=== PATIENT | male | born 1985 | race Caucasian/White ===

== ENCOUNTER 2023-07-12 13:03 | Outpatient (CLI) | payer BC, SELFPAY | END 2023-07-12 13:04 | disposition home or self-care (01) | LOC: KYNREF 13:05 | PROVIDERS: PCP Nurse Practitioner Family; Visit Provider Nurse Practitioner Family | DX: I10 Essential (primary) hypertension (principal); Z51.81 Encounter for therapeutic drug level monitoring | CPT/HCPCS: 80076 ==

== ENCOUNTER 2023-07-30 12:56 | Outpatient (CLI) | payer BC, SELFPAY ==
--- OUTSIDE RECORDS SUMMARY | 2023-07-31 19:11 | XMS_ITS | Clinical Summary ---
Author Name Unknown Organization [facility] Address [place], [place] [address] Care Team Providers Care Foot Drill Operator Name Role Phone Shai Pleitez MD Primary Care Provider + Allergies Active Allergy Reactions Criticality Noted Date Comments Tetanus And Diphther. Tox (Pf) Rash 10/13 With whooping cough Medications No known medications Active Problems Problem Noted Date Diagnosed Date Major depression, single episode 02/13/2011 Resolved Problems Problem Noted Date Diagnosed Date Resolved Date Alcohol abuse 02/13/2011 12/14/2017 Immunizations Name Administration Dates Next Due MMR 10/26/1995 Td (Age >=7 Years) 10/26/1995 Family History Medical History Relation Name Comments Hypertension No Family History Relation Name Status Comments Father Alive Social History Tobacco Use Types Packs/Day Years Used Date Smoking Tobacco: Every Day Cigarettes 1 5 Smokeless Tobacco: Never Tobacco Cessation:Ready to Q uit: Not Asked; Counseling Given: Not Answered Alcohol Use Standard Drinks/Week Comments Yes 0 (1 standard drink = 0.6 oz pur e alcohol) history of abuse PHQ-2 Answer Date Recorded PHQ-2 TOTAL SCORE 2 06/19/2022 Social Connections Answer Date Recorded Frequency of Communication with Friends and Fami ly Not on file 06/19/2022 Sex and Gender Information Value Date Recorded Sex Assigned at Not on file Gender Identity Not on file Sexual Orientation Not on file Obstetrics History Last Filed Vital Signs Vital Sign Reading Time Taken Comments Blood Pressure 140/90 06/19/2022 3:32 PM PRODUCER Pulse 97 06/19/2022 3:32 PM PRODUCER Temperature 36.8 ??C (98.2 ??F) 03/14/2011 3:04 PM CD T Respiratory Rate 12 03/14/2011 3:04 PM CDT Oxygen Saturation 96% 06/19/2022 3:32 PM PRODUCER Inhaled Oxygen Concentration - - Weight 104.3 kg (230 lb) 06/19/2022 3:32 PM PRODUCER Height 184.2 cm (6' 0.5) 06/19/2022 3:32 PM PRODUCER Body Mass Index 30.76 06/19/2022 3:32 PM PRODUCER Plan of Treatment Health Maintenance Due Date Last Done Comments COVID-19 vaccine series (#1) 1983 Pneumococcal series for age 6-64 (1 of 2 - PCV) 1989 Tdap 1994 Tetanus booster 10/25/2005 10/26/1995 Influenza for age 9-49 03/02/2023 BMI (ht and wt on same day) for age 18+ 06/19/2023 06/19/2022, 12/14/2017, 10/13/2016 Depression screening for age 12+ 06/22/2023 06/22/2022, 06/19/2022, 12/14/2017, Additional history exists Lipids for age 35-44 06/19/2027 06/19/2022 HIV for age 15-65 Completed 06/19/2022 Hepatitis C screening for ag e 18-79 Completed 06/19/2022 Care Teams Foot Drill Operator Relationship Specialty Start Date End Date Shai Pleitez MD PCP - General Family Practice 02/13/11
== END 2023-07-30 12:57 | disposition home or self-care (01) ==
LOC: NFLDREF 07-31 19:10
PROVIDERS: PCP Nurse Practitioner Family; Referring Provider Nurse Practitioner Family; Visit Provider Nurse Practitioner Family
DX: Z51.81 Encounter for therapeutic drug level monitoring (principal)
CPT/HCPCS: 80076

== ENCOUNTER 2023-08-23 13:03 | Outpatient (CLI) | payer BC, SELFPAY | END 2023-08-23 13:04 | disposition home or self-care (01) | LOC: NFLDREF 09-04 20:53 | PROVIDERS: PCP Nurse Practitioner Family; Referring Provider Nurse Practitioner Family; Visit Provider Nurse Practitioner Family | DX: Z51.81 Encounter for therapeutic drug level monitoring (principal) | CPT/HCPCS: 80076 ==

== ENCOUNTER 2023-12-04 13:21 | Outpatient (CLI) | payer BC, SELFPAY ==
--- OUTSIDE RECORDS SUMMARY | 2023-12-04 13:23 | XMS_ITS | Clinical Summary ---
Author Organization [facility] Address [place], [place] [address] Care Team Providers Care Cleaning Porter Name Role Phone Shai Pleitez MD Primary [...] Comments Blood Pressure 140/90 06/19/2022 3:32 PM AGRICULTURAL ADVISER Pulse 97 06/19/2022 3:32 PM AGRICULTURAL ADVISER Temperature 36.8 ??C (98.2 ??F) 03/14/2011 3:04 PM CD T Respiratory Rate 12 03/14/2011 3:04 PM CDT Oxygen Saturation 96% 06/19/2022 3:32 PM AGRICULTURAL ADVISER Inhaled Oxygen Concentration - - Weight 104.3 kg (230 lb) 06/19/2022 3:32 PM AGRICULTURAL ADVISER Height 184.2 cm (6' 0.5) 06/19/2022 3:32 PM AGRICULTURAL ADVISER Body Mass Index 30.76 06/19/2022 3:32 PM AGRICULTURAL ADVISER Plan of Treatment Health Maintenance Due Date Last Done Comments Pneumococcal series for age 6-64 (1 of 2 - PCV) 1989 Tdap 1994 Tetanus booster 10/25/2005 10/26/1995 COVID-19 vaccine series ( - season) 2023 BMI (ht and wt on same day) for age 18+ 06/19/2023 06/19/2022, 12/14/2017, 10/13/2016 Depression screening for age 12+ 06/22/2023 06/22/2022, 06/19/2022, 12/14/2017, Additional history exists Influenza for age 9-49 03/02/2024 Lipids for age 35-44 06/19/2027 06/19/2022 HIV for age 15-65 Completed 06/19/2022 Hepatitis C screening for ag e 18-79 Completed 06/19/2022 Procedures Procedure Name Priority Date/Time Associated Diagnosis Comments ANTI HIV 1/2 Routine 06/19/2022 4:40 PM AGRICULTURAL ADVISER Screening for HIV (human immunodeficiency virus) ANTI HCV Routine 06/19/2022 4:40 PM AGRICULTURAL ADVISER Need for hepatitis C screening test LIPID PANEL W REFLEX MEASURED LDL Routine 06/19/2022 4:40 PM AGRICULTURAL ADVISER Lipid screening from Last 3 Months or Most Recently Relevant to Health Maintenance Results * LIPID PANEL W REFLEX MEASURED LDL (06/19/2022 4:40 PM AGRICULTURAL ADVISER) CHOLESTEROL,TOTAL 175 100 - 199 mg/dL 06/19/2022 5:20 PM AGRICULTURAL ADVISER [facility] TRIGLYCERIDES 54 <150 mg/dL 06/19/2022 5:20 PM [facility] HDL CHOLESTEROL 51 >40 mg/dL 5:20 PM [facility] NON-HDL CHOLESTEROL 124 <145 mg/dl 06/19/2022 5:20 PM [facility] CHOL/HDL RATIO 3.43 <4.50 06/19/2022 5:20 PM [facility] LDL CHOLESTEROL 113 <=130 mg/dL 06/19/2022 5:20 PM [facility] VLDL CHOLESTEROL 11 <=30 mg/dL 06/19/2022 5:20 PM [facility] PROVIDER ORDERED STATUS RANDOM 06/19/2022 5:20 PM [facility] Blood BLOOD SPECIMEN / Unknown Venipuncture / Unknown 06/19/2022 4:40 PM AGRICULTURAL ADVISER 06/19/2022 4:41 PM AGRICULTURAL ADVISER Lei MONAE CHEMISTRY [facility] [address] [place] [address] * ANTI HCV (06/19/2022 4:40 PM AGRICULTURAL ADVISER) HEPATITIS C ANTIBODY Non-React david Non-React david 06/22/2022 2:19 AM AGRICULTURAL ADVISER [facility] Comment:Antibodies to HCV no t detected; does not exclude the possibility of exposure to HCV. Blood BLOOD SPECIMEN / Unknown Venipuncture / Unknown 06/19/2022 4:40 PM AGRICULTURAL ADVISER 06/19/2022 4:41 PM AGRICULTURAL ADVISER Lei MONAE SEND OUTS [facility] [address] [place] [address], * ANTI HIV 1/2 [23650.0] (06/19/2022 4:40 PM AGRICULTURAL ADVISER) HIV-1/HIV-2 ANTIBODY Non-Reacti ve Non-Reacti ve 06/22/2022 2:20 AM AGRICULTURAL ADVISER [facility] Comment:HIV-1 p24 and HIV-1/ HIV-2 Ab not detected. Blood BLOOD SPECIMEN / Unknown Venipuncture / Unknown 06/19/2022 4:40 PM AGRICULTURAL ADVISER 06/19/2022 4:41 PM AGRICULTURAL ADVISER Lei MONAE SEND OUTS [facility] [address] [place] [address], from Last 3 Months or Most Recently Relevant to Health Maintenance Care Teams Cleaning Porter Relationship Specialty Start Date End Date Shai Pleitez MD PCP - General Family Practice 02/13/11
== END 2023-12-04 13:22 | disposition home or self-care (01) ==
LOC: KYNREF 13:22
PROVIDERS: PCP Nurse Practitioner Family; Visit Provider Nurse Practitioner Family
DX: I10 Essential (primary) hypertension (principal)
CPT/HCPCS: 80053

== ENCOUNTER 2024-12-11 11:00 | Outpatient (CLI) | payer BC, SELFPAY | END 2024-12-11 11:01 | disposition home or self-care (01) | PROVIDERS: PCP Nurse Practitioner Family; Visit Provider Nurse Practitioner Family | DX: I10 Essential (primary) hypertension (principal); Z13.6 Encounter for screening for cardiovascular disorders; R53.83 Other fatigue | CPT/HCPCS: 80053; 80061; 82306; 85025 ==